=== PATIENT | female | born 1960 | race Caucasian/White ===

== ENCOUNTER 2022-09-20 09:10 | Outpatient (CLI) | payer OTHER ==
[~2022-09-20 09:10] MED LIST: INTESTINEX1 CAP PO; PROTONIX40 MG PO
== END 2022-09-20 09:14 | disposition home or self-care (01) ==
LOC: SONOGRAMA 09:10
PROVIDERS: ATTEND Pathology Anatomic Pathology & Clinical Pathology
DX: D34 Benign neoplasm of thyroid gland (principal); E06.3 Autoimmune thyroiditis; E04.1 Nontoxic single thyroid nodule